=== PATIENT | male | born 1950 | race Two or more races ===

== ENCOUNTER 2017-01-18 14:35 | Emergency (ER) | payer OTHER, MEDICAID ==
[~2017-01-18] VITALS: Ht 170.2 cm; Wt 80.7 kg
[~2017-01-18 14:35] MED LIST: ACET-929; CIPR-217; GABA-498; ISOS60TA24; METR500T14; MONTELUKAST 10MG TABLETS; OMEPRAZOLE; SIMV-13; TRAM50TA2; TRAZADONE
[2017-01-18 17:05] VITALS: BP 131/74
== END 2017-01-18 17:41 | disposition home or self-care (01) ==
LOC: ER 14:35
DX: S00.93XA Contusion of unspecified part of head, initial encounter (principal); K21.9 Gastro-esophageal reflux disease without esophagitis; I25.10 Atherosclerotic heart disease of native coronary artery without angina pectoris; Z79.899 Other long term (current) drug therapy; Z98.61 Coronary angioplasty status; W22.01XA Walked into wall, initial encounter; Y93.E1 Activity, personal bathing and showering; Y99.8 Other external cause status; Y92.89 Other specified places as the place of occurrence of the external cause
CPT/HCPCS: 70450